=== PATIENT | male | born 1970 | race Caucasian/White ===

== ENCOUNTER 2016-11-18 17:05 | Emergency (ER) | payer OTHER ==
[~2016-11-18] VITALS: Ht 190.5 cm; Wt 103.2 kg
[2016-11-18 17:29] VITALS: TEMP 37; Ht 190.5 cm; Wt 103.2 kg
[2016-11-18] MEDS ORDERED: KETOROLAC TROMETHAMINE 60 MG/2 ML VIAL IM STA (17:43)
--- NOTE | 2016-11-18 18:53 | DIAGNOSTIC IMAGING REPORT ---
RIGHT PELVIS/UNILATERAL HIP 2-3VIEWS CLINICAL HISTORY: Severe right hip pain. No recent injury. COMPARISON: None FINDINGS: Surgical clips project over the right lower quadrant. The sacroiliac joints and symphysis pubis are intact. There is no acute fracture within the pelvis or the hips. A few ossific/calcific densities adjacent to the greater trochanter measuring 1 cm. There are faint calcification along the acetabulum. Hip joint spaces are preserved. IMPRESSION: 1. No acute fracture within the pelvis or hips. 2. Several well-corticated ossific/calcific densities adjacent to the greater trochanter of the right femur. These are age indeterminate but probably old. 3. Ossicles or osteophytes along the superior acetabulum of the right hip. Preserved right hip joint space. Electronically signed by: Luis Crow M.D. 11/18/2016 6:52 PM Dictated Date/Time: 11/18/2016 6:48 PM
--- NOTE | 2016-11-18 20:34 | DIAGNOSTIC IMAGING REPORT ---
ORBIT RADIOGRAPHS 3 VIEWS HISTORY: pre-MRI screening. COMPARISON: None. FINDINGS: There are no radiopaque foreign bodies identified within the orbits. IMPRESSION: No radiopaque foreign bodies identified within the orbits. Electronically signed by: Luis Crow M.D. 11/18/2016 8:33 PM Dictated Date/Time: 11/18/2016 8:33 PM
--- NOTE | 2016-11-18 21:32 | DIAGNOSTIC IMAGING REPORT ---
MRI OF THE RIGHT HIP WITHOUT CONTRAST CLINICAL HISTORY: Severe right hip pain. No recent injury. COMPARISON STUDY: Pelvis and right hip radiographs performed earlier today. TECHNIQUE: Utilizing a 1.5 Natacha magnet and dedicated coil, multiplanar, multiecho imaging of the right hip was performed without intravenous or intraarticular contrast. FINDINGS: Alignment of the right hip is anatomic. There is no evidence of avascular necrosis. No marrow edema is identified. There is no suspicious marrow replacement within visualized skeletal structures. There is a 1 cm T2 hyperintense, T1 hypointense lesion within the intertrochanteric portion of the right hip. This is probably benign. No mass or fluid collection is noted adjacent to the right hip. There is no hip joint effusion. The adjacent musculature is unremarkable. Right hip joint space is preserved. No significant cartilage abnormality is present. The labrum is suboptimally assessed on this exam but no labral tear is identified. There is mild disc space narrowing with discogenic changes at the L5-S1 level. IMPRESSION: 1. No acute abnormality of the right hip by MRI. 2. 1 cm lesion within the proximal right femur. While indeterminate, this is likely benign. No suspicious marrow replacement. No marrow edema. Electronically signed by: Luis Crow M.D. 11/18/2016 9:30 PM Dictated Date/Time: 11/18/2016 9:24 PM
--- NOTE | 2016-11-18 22:14 | EMERGENCY ROOM VISIT NOTE ---
History First contact with patient: 17:33 Chief Complaint: HIP PAIN Stated Complaint: POSSIBLE RT HIP DISLOCATION History of Present Illness The patient is a 45 year old male who presents to the Emergency Room via private vehicle with complaints of "possible right hip dislocation". The patient states that he feels as though his right hip is dislocated. He states that he woke up this morning with right hip pain. He points to the right hip, right anterior thigh and right gluteal region as the location of the pain that he rates as a 7/10. He denies any chest pain, shortness of breath, falls, trauma, fevers, chills, nausea, vomiting. Review of Systems A complete 6-point Review of Systems was discussed with the patient, with pertinent positives and negatives listed in the History of Present Illness. All remaining Review of Systems questions can be considered negative unless otherwise specified. Past Medical/Surgical History Medical Problems: (1) No known health problems (2) Thalassemia Family History No pertinent family history Social History Smoking Status: Never Smoker Marital Status: Housing Status: lives with family Occupation Status: employed Current/Historical Medications No Active Prescriptions or Reported Meds Allergies Coded Allergies: No Known Allergies (Unverified , 02/24/16) Physical Exam Vital Signs Date Time Temp Pulse Resp B/P Pulse Ox O2 Delivery O2 Flow Rate FiO2 11/18/16 22:18 76 18 148/95 97 11/18/16 17:29 37.0 96 24 143/97 96 Room Air Physical Exam VITAL SIGNS - Vital signs and nursing notes were reviewed. Patient is afebrile , hypertensive at 143/97, non-tachycardic and is saturating well on room air 96% . GENERAL -45-year-old male appearing his stated age who is in no acute distress. Communicates well with provider and answers questions appropriately. Patient is ambulatory and is able to axial load. SKIN - Without rashes. The skin overlying the right hip is unremarkable. HEAD - NC/AT. LUNGS - Chest wall symmetric without accessory muscle use, intercostals retractions, or central cyanosis. Normal vesicular breath sounds CTA B/L. No wheezes, rales, or rhonchi appreciated. CARDIAC - RRR with S1/S2. No murmur, rubs, or gallops appreciated. EXTREMITIES - No clubbing or peripheral cyanosis. No pretibial edema present. He is vascularly intact in the right lower family. There is tenderness palpation overlying the right hip, right gluteal region and right anterior thigh. Pain is worse with active external rotation of the right hip. No evidence of hip dislocation. +5/5 strength noted in UE/LE bilaterally. MUSCULOSKELETAL: There is no back pain. NEUROLOGIC -Sensory intact to light touch throughout. PSYCH - Pt is very pleasant and interacts well with examiner. Medical Decision & Procedures ER Provider Diagnostic Interpretation: RIGHT PELVIS/UNILATERAL HIP 2-3VIEWS CLINICAL HISTORY: Severe right hip pain. No recent injury. COMPARISON: None FINDINGS: Surgical clips project over the right lower quadrant. The sacroiliac joints and symphysis pubis are intact. There is no acute fracture within the pelvis or the hips. A few ossific/calcific densities adjacent to the greater trochanter measuring 1 cm. There are faint calcification along the acetabulum. Hip joint spaces are preserved. IMPRESSION: 1. No acute fracture within the pelvis or hips. 2. Several well-corticated ossific/calcific densities adjacent to the greater trochanter of the right femur. These are age indeterminate but probably old. 3. Ossicles or osteophytes along the superior acetabulum of the right hip. Preserved right hip joint space. Electronically signed by: Luis Crow M.D. 11/18/2016 6:52 PM Dictated Date/Time: 11/18/2016 6:48 PM MRI OF THE RIGHT HIP WITHOUT CONTRAST CLINICAL HISTORY: Severe right hip pain. No recent injury. COMPARISON STUDY: Pelvis and right hip radiographs performed earlier today. TECHNIQUE: Utilizing a 1.5 Natacha magnet and dedicated coil, multiplanar, multiecho imaging of the right hip was performed without intravenous or intraarticular contrast. FINDINGS: Alignment of the right hip is anatomic. There is no evidence of avascular necrosis. No marrow edema is identified. There is no suspicious marrow replacement within visualized skeletal structures. There is a 1 cm T2 hyperintense, T1 hypointense lesion within the intertrochanteric portion of the right hip. This is probably benign. No mass or fluid collection is noted adjacent to the right hip. There is no hip joint effusion. The adjacent musculature is unremarkable. Right hip joint space is preserved. No significant cartilage abnormality is present. The labrum is suboptimally assessed on this exam but no labral tear is identified. There is mild disc space narrowing with discogenic changes at the L5-S1 level. IMPRESSION: 1. No acute abnormality of the right hip by MRI. 2. 1 cm lesion within the proximal right femur. While indeterminate, this is likely benign. No suspicious marrow replacement. No marrow edema. Electronically signed by: Luis Crow M.D. 11/18/2016 9:30 PM Dictated Date/Time: 11/18/2016 9:24 PM ORBIT RADIOGRAPHS 3 VIEWS HISTORY: pre-MRI screening. COMPARISON: None. FINDINGS: There are no radiopaque foreign bodies identified within the orbits. IMPRESSION: No radiopaque foreign bodies identified within the orbits. Electronically signed by: Luis Crow M.D. 11/18/2016 8:33 PM Dictated Date/Time: 11/18/2016 8:33 PM Medications Administered Medications (Trade) Dose Ordered Sig/Veronika Route Start Time Stop Time Status Last Admin Dose Admin Ketorolac Tromethamine (Toradol Inj) 60 mg NOW STAT IM 11/18/16 17:43 11/18/16 17:44 DC 11/18/16 18:23 60 MG Medical Decision Patient was seen and evaluated as above. After obtaining a thorough history and physical examination patient was given 60 mg of Toradol IM. He does not want narcotics. Patient does not have any known injury or trauma to the region. Physical examination is suggestive of potential bursitis however it is not clear. Radiograph does not reveal obvious fracture. Case was discussed with my attending and the decision to obtain an MRI was made. Patient was educated upon this and the decision to an MRI was pursued. Orbital x-ray was obtained to rule out metal in the eye prior to scan. MRI was obtained. No obvious acute abnormality. The patient may have pulled a muscle in this region or he may have underlying bursitis. He did have some relief from the Toradol. I do not suspect any emergent cause at this time. Patient overall clinically appears well. He is on a pain medication for home and declines crutches. He is to follow up with his family doctor regarding today's visit. He was educated upon management, educated upon worrisome symptoms which to return, had questions prior to discharge and was discharged home in good condition. In the evaluation and treatment of this patient, the following differential diagnoses were considered: Hip Fracture, Hip Dislocation, Greater Trochanteric Bursitis, Musculoskeletal Pain, Lumbar Radiculopathy. Impression Primary Impression: Right hip pain Departure Information Dispostion Home / Self-Care Condition GOOD Prescriptions No Active Prescriptions or Reported Meds Referrals Devin Espinoza III, M.D. (PCP) Patient Instructions My [facility] Additional Instructions You have been treated in the Emergency Department for Hip Pain. . For pain control, you can use the following [id number] medicines (if >12 yo): - Regular strength (325mg/tab) Tylenol (acetaminophen) 2 tabs every 4-6 hours as needed. Do not exceed 12 tablets in a 24 hour period. Avoid taking more than 4 grams (4000 mg) of Tylenol per day. This includes any other sources of acetaminophen you may take on a regular basis. - Regular strength (200 mg/tab) Advil (ibuprofen) 1-2 tabs every 4-6 hours as needed. Do not exceed a dose of 3200 mg per day. If this is a recent injury (<24 hrs), ice can be applied to the area of pain for the first 3 days to help decrease pain and inflammation. Ice massages can be performed by freezing water in a paper cup, peeling back the cup to expose the ice and then massaging over the affected area. Please call your family doctor tomorrow to schedule follow-up. Please further discuss today's findings. Be cautious with your hip movements until your pain is tolerable. Return to the Emergency Department if your current symptoms worsen despite treatment course outlined above. Please return to the emergency department with any new/concerning symptoms.
[2016-11-18 22:18] VITALS: BP 148/95; PULSE 76; O2SAT 97
== END 2016-11-18 22:19 | disposition home or self-care (01) ==
LOC: C.EDB 17:06 → C.EDD 22:19
DX: M25.551 Pain in right hip (principal)